=== PATIENT | male | born 1955 | race Caucasian/White ===

== ENCOUNTER 2018-04-05 08:13 | Day surgery (SDC) | payer OTHER ==
[~2018-04-05] VITALS: Ht 185.4 cm; Wt 122.5 kg
[~2018-04-05 08:13] MED LIST: Vitamin C100 M1
== END 2018-04-05 22:45 | disposition home or self-care (01) ==
LOC: ORSCMMR 08:13 → ORD 09:15 → ORSCMMR 22:45
DX: Z12.11 Encounter for screening for malignant neoplasm of colon (principal); D12.5 Benign neoplasm of sigmoid colon; D12.4 Benign neoplasm of descending colon; D12.0 Benign neoplasm of cecum; D12.2 Benign neoplasm of ascending colon; Z87.891 Personal history of nicotine dependence
CPT/HCPCS: J7120

== ENCOUNTER 2018-11-20 10:29 | Day surgery (SDC) | payer OTHER ==
[~2018-11-20] VITALS: Ht 182.9 cm; Wt 95.6 kg
--- NOTE | 2018-11-20 10:46 | NUR ---
PT ADMITTED TO [facility]. [facility] PLANNED PROCEDURE. LUNG SOUNDS CLEAR. TOLERATED BOWEL PREP, LAST BM CLEAR.
--- NOTE | 2018-11-20 11:03 | NUR ---
11/20/18 1103 Mónica Shannon PATIENT DETERMINED TO BE ASA APPROPRIATE FOR PROPOFOL SEDATION PRIOR TO START OF PROCEDURE BY DR. HERNANDEZ. 3-LEAD EKG REVIEWED WITH PHYSICIAN PRIOR TO START OF PROCEDURE. PATIENT CONFIRMS NPO STATUS AND AGREES WITH SCHEDULED PROCEDURE. History, Chart, Medications and Allergies reviewed before start of procedure. MONITOR INTACT WITH CONTINUOUS PULSE OXIMETRY AND INTERMITTENT BP. O2 VIA N/C INTACT THROUGHOUT SEDATION/PROCEDURE, 4L NC DUE TO STARTING OXYGENATION OF 94%.
--- NOTE | 2018-11-20 12:37 | NUR ---
Discharge instructions reviewed with patient. Patient verbalizes understanding. Copy given to patient to take home. Discharged via wheelchair to private car for ride home.
== END 2018-11-20 22:45 | disposition home or self-care (01) ==
LOC: ORSCMMR 10:29 → ORD 11:30 → ORSCMMR 22:45
PROVIDERS: Internal Medicine Gastroenterology
PROC: 0DBM8ZX Excision of Descending Colon, Via Natural or Artificial Opening Endoscopic, Diagnostic (ICD-10-PCS; principal; 2018-11-20 11:30)
PROC: 0DBL8ZX Excision of Transverse Colon, Via Natural or Artificial Opening Endoscopic, Diagnostic (ICD-10-PCS; principal; 2018-11-20 11:30)
DX: K63.5 Polyp of colon (principal); D12.3 Benign neoplasm of transverse colon; K57.30 Diverticulosis of large intestine without perforation or abscess without bleeding; K21.9 Gastro-esophageal reflux disease without esophagitis; Z87.891 Personal history of nicotine dependence
CPT/HCPCS: 88305; J2704; J7120

== ENCOUNTER 2023-07-12 07:13 | Day surgery (SDC) | payer MEDICARE, OTHER ==
[~2023-07-12] VITALS: Ht 188 cm; Wt 100.2 kg
[2023-07-12] VITALS (17 sets, daily range): BP systolic 125–178; BP diastolic 87–125
[~2023-07-12 07:13] MED LIST changes: +ATOR10 PO; +FAMO10 PO; +IBUP400 PO; +METF500 PO
--- NOTE | 2023-07-12 08:10 | NUR ---
Patient up to Ambulate independently. Gait steady. History, Chart, Medications and Allergies reviewed before start of procedure. Lungs clear T/O to Auscultation. Patient confirms NPO status and agrees with scheduled surgery. Pre-Op teaching done. Pt verbalizes understanding. Patient States Post-Procedure ride home has been arranged WITH FRIEND MARISOL.
--- NOTE | 2023-07-12 09:48 | NUR ---
07/12/23 0948 Benton Gavin HISTORY, CHART, MEDICATIONS AND ALLERGIES REVIEWED BEFORE START OF PROCEDURE. PATIENT CONFIRMS NPO STATUS AND AGREES WITH SCHEDULED PROCEDURE. 3-LEAD EKG REVIEWED WITH PHYSICIAN PRIOR TO START OF PROCEDURE. MONITOR INTACT WITH CONTINUOUS PULSE OXIMETRY,CAPNOGRAPHY, 3-LEAD EKG, INTERMITTENT BP. SUPPLEMENTAL O2 TO BE TITRATED THROUGHOUT PROCEDURE TO MAINTAIN O2 SATURATION ABOVE 90%. PATIENT DETERMINED TO BE ASA APPROPRIATE FOR PROPOFOL SEDATION PRIOR TO START OF PROCEDURE BY
--- NOTE | 2023-07-12 10:16 | NUR ---
Patient up to Ambulate independently. Gait steady. Discharge instructions reviewed with patient. Patient verbalizes understanding. Copy given to patient to take home. Patient States Post-Procedure ride home has been arranged. Discharged via wheelchair to private car for ride home.
== END 2023-07-12 10:23 | disposition home or self-care (01) ==
LOC: ORSCMMR 07:13 → ORD 08:30 → ORSCMMR 10:23
PROVIDERS: Internal Medicine Gastroenterology
PROC: 0DBN8ZX Excision of Sigmoid Colon, Via Natural or Artificial Opening Endoscopic, Diagnostic (ICD-10-PCS; principal; 2023-07-12 08:30)
PROC: 0DBM8ZX Excision of Descending Colon, Via Natural or Artificial Opening Endoscopic, Diagnostic (ICD-10-PCS; principal; 2023-07-12 08:30)
DX: Z12.11 Encounter for screening for malignant neoplasm of colon (principal); Z86.010 Personal history of colon polyps; Z80.0 Family history of malignant neoplasm of digestive organs; D12.4 Benign neoplasm of descending colon; K63.5 Polyp of colon; E11.9 Type 2 diabetes mellitus without complications; E78.00 Pure hypercholesterolemia, unspecified; K21.9 Gastro-esophageal reflux disease without esophagitis; Z79.84 Long term (current) use of oral hypoglycemic drugs; Z79.899 Other long term (current) drug therapy
CPT/HCPCS: 82947; 88305; J2704; J7120